=== PATIENT | female | born 1970 | race Caucasian/White ===

== ENCOUNTER 2023-04-06 06:18 | Observation (INO) ==
--- NOTE | 2023-03-15 12:39 | PAT Medication Instructions ---
Medication Instructions Date of Service March 15, 2023 Home Medications albuterol sulfate 90 mcg/actuation aerosol inhaler 1 inh inhalation QID PRN loratadine 10 mg tablet (Claritin) 10 mg PO QAM montelukast 10 mg tablet (Singulair) 10 mg PO HS omeprazole magnesium 20 mg tablet,delayed release (Prilosec OTC) 20 mg PO DAILY PRN venlafaxine 37.5 mg tablet 37.5 mg PO QPM Continue as directed omeprazole magnesium 20 mg tablet,delayed release (Prilosec OTC) 20 mg PO DAILY PRN DO NOT take the morning of surgery loratadine 10 mg tablet (Claritin) 10 mg PO QAM Take morning of surgery With a small sip of water, OTHERWISE NOTHING TO EAT OR DRINK AFTER MIDNIGHT: albuterol sulfate 90 mcg/actuation aerosol inhaler 1 inh inhalation QID PRN(use if needed; please bring with you to hospital day of surgery if possible) Take evening before surgery albuterol sulfate 90 mcg/actuation aerosol inhaler 1 inh inhalation QID PRN(if needed) montelukast 10 mg tablet (Singulair) 10 mg PO HS venlafaxine 37.5 mg tablet 37.5 mg PO QPM Other Notes If you have any questions please call us at [phone] or [phone] or [phone] or [phone]
--- NOTE | 2023-03-23 12:41 | Anesthesiology Consultation ---
Date of Service March 23, 2023 Assessment & Plan (1) Encounter for pre-operative examination: Infectious disease screening: Per assessment on 03/23/23: No known infectious disease contacts or current infectious disease symptoms. No noted Covid positive test result in past 90 days. Chart Review Chart Review: Acceptable Risk for Surgery and Patient seen in Pre Admission Testing Teaching & Discussion Pre-Anesthesia Teaching/Discussion Notes: Instructed NPO after midnight before surgery,except medications with 15 cc of water. Medication instructions provided according to the PAT guidelines. History Surgery Operation Date: 04/06/23 07:45 Proposed Procedures p C5-C7 Anterior Cervical Discectomy and Fusion, Spinal Cord Monitoring - Gregorio Breaux DO Height/Weight Height: 5 ft 5 in Weight: 84.3 kg Allergies Allergy/AdvReac Type Severity Reaction Status Date / Time No Known Allergies Allergy Verified 03/14/23 15:33 Medications Home Medications Medication Instructions Recorded Confirmed Last Taken albuterol sulfate 90 mcg/actuation 1 inh inhalation QID PRN sob 03/14/23 03/14/23 Unknown aerosol inhaler loratadine 10 mg tablet (Claritin) 10 mg PO QAM 03/14/23 03/14/23 Unknown montelukast 10 mg tablet 10 mg PO HS 03/14/23 03/14/23 Unknown (Singulair) omeprazole magnesium 20 mg 20 mg PO DAILY PRN gerd 03/14/23 03/14/23 Unknown tablet,delayed release (Prilosec OTC) venlafaxine 37.5 mg tablet 37.5 mg PO QPM 03/14/23 03/14/23 Unknown Past Medical History Medical History Osteoarthritis GERD (gastroesophageal reflux disease) History of migraine Exercise-induced asthma HLD (hyperlipidemia) Exercise / Class Metabolic Activity II 4-5 Yardwork/Stairs/Walk up hill (one FS (no CP, no SOB)) Past Surgical History Surgical History History of postoperative nausea History of endometrial ablation History of D&C D&E History of History of cholecystectomy History of esophagogastroduodenoscopy (EGD) History of colonoscopy History of hysterectomy Past Anesthesia History No Hx of Anesthesia Complications and No Family Hx of Anesthesia Complications History of PONV No Hx of Motion Sickness and History of PONV (post-op nausea x single episode) STOP BANG Total 2 Social History Smoking Status: Former smoker Do You Dip or Chew Tobacco: No Smoking End Date: Quit years ago Hx Alcohol Use: Yes alcohol intake frequency: a few times a month Hx Substance Use: No substance use type: does not use Review of Systems Patient denies chest pain, shortness of breath, dyspnea on exertion, fever, chills, cough, wheezing, palpitations. Physical Exam Vital Signs VITALS BP 126/81 P 85 TEMP 98.3 SP02 99%RA RESP 16 PHYSICAL Mildly decreased cervical extension range of motion. Full TMJ range of motion. TMD 3 finger breaths Mallampati Score 1 Dentition: intact, + crowns Lungs: clear throughout to auscultation Cardiac: regular rate and rhythm, no murmurs noted Spine: normal Carotid arteries: negative bruit Extremities: no LE edema Lab Results Anesthesia Preop Results Results Anesthesia Widget: WBC 6.05 K/ul (4.8-10.8) 03/23/23 Hgb 13.8 g/dl (12.0-16.0) 03/23/23 Hct 42.1 % (37.0-47.0) 03/23/23 Plt 273 K/uL (130-400) 03/23/23 Na 138 mmol/L (136-145) 03/23/23 K 4.1 mmol/L (3.5-5.1) 03/23/23 Cl 104 mmol/L (98-107) 03/23/23 CO2 27 mmol/L (21-32) 03/23/23 BUN 12 mg/dl (6-23) 03/23/23 Creat 0.71 mg/dl (0.6-1.2) 03/23/23 Glucose Level 84 mg/dl (70-99(Fasting)) 03/23/23 PT 11.8 Seconds (9.0-12.0) 03/23/23 PTT 27.1 Seconds (21.0-31.0) 03/23/23 INR 1.1 (0.9-1.1) 03/23/23 Urine Color Yellow 03/23/23 Urine Appearance Clear (Clear) 03/23/23 Urine pH 7.0 (4.5-7.5) 03/23/23 Urine Specific [place] 1.008 (1.000-1.030) 03/23/23 Urine Protein Negative (Negative) 03/23/23 Urine Glucose (UA) Negative (Negative) 03/23/23 Urine Ketones Negative (Negative) 03/23/23 Urine Blood Negative (Negative) 03/23/23 Urine Nitrite Negative (Negative) 03/23/23 Urine Bilirubin Negative (Negative) 03/23/23 Urine Urobilinogen Negative (Negative) 03/23/23 Urine Leukocyte Esterase Negative (Negative) 03/23/23 Blood Type A Positive 03/23/23 Antibody Screen NEGATIVE 03/23/23 Testing Electrocardiogram Date: 02/06/23 SR at 77bpm. PRWP. NS Septal T wave abnormality. "EKG normal per Dr. Cerda" Chest X-Ray Date: 03/23/23 FINDINGS: The lungs are clear. Cardiac silhouette is normal in size. No pleural effusions. No pneumothorax. Prior cholecystectomy. IMPRESSION: No acute process.
[~2023-04-06 06:18] MED LIST: ACETAMINOPHEN 500 MG TAB PO SCH; CeleBREX 200 MG CAP PO SCH; GABAPENTIN 600 MG DOSE PO SCH; LR 15ML/HR IV SCH; LR 60ML/HR IV SCH; ceFAZolin 2000MG 2,000 MG/15 ML SYR IV SCH
[2023-04-06] MEDS ORDERED: LIDOCAINE 2% 2 ML VIAL/AMP(20MG/ML) INFIL ONE ×2 (07:05)
[2023-04-06] MEDS ORDERED: fentaNYL citrate PF 100 MCG/2 ML VIAL ONE ×2 (07:05→08:21)
[2023-04-06] MEDS ORDERED: ONDANSETRON INJ 2 MG/ML 2 ML VIAL ONE (07:05)
[2023-04-06] MEDS ORDERED: MIDAZOLAM HCL 1 MG/ML 2ML VIAL ONE (07:05)
[2023-04-06] MEDS ORDERED: PROPOFOL IV EMULSION 10 MG/ML 20 ML VIAL IV ONE (07:05)
[2023-04-06] MEDS ORDERED: DEXAMETHASONE SOD INJ 4 MG/ML VIAL ONE (07:05)
[2023-04-06] MEDS ORDERED: ROCURONIUM BROMIDE 10 MG/ML 5 ML VIAL IV ONE ×7 (07:05→08:54)
[2023-04-06] MEDS ORDERED: ceFAZolin 330 MG/ML 1 GM VIAL ONE (07:06)
[2023-04-06] MEDS ORDERED: ONDANSETRON INJ 2 MG/ML 2 ML VIAL IV PRN ×2 (07:14→10:49)
[2023-04-06] MEDS ORDERED: ePHEDrine sulfate 50 MG/ML AMP IV PRN (07:14)
[2023-04-06] MEDS ORDERED: ATROPINE SULFATE 0.1 MG/ML 10ML SYR IV PRN (07:14)
--- NOTE | 2023-04-06 07:40 | History & Physical Bridge Note ---
Date of Service April 06, 2023 History & Physical Bridge Note I have examined the patient, reviewed the History & Physical and in the interval since the performance of the History & Physical I have noted the following changes of clinical significance: no changes noted
--- NOTE | 2023-04-06 07:43 | History & Physical Report ---
Date of Service April 06, 2023 Assessment & Plan (1) Cervical stenosis of spinal canal: Plan: C5 C7 anterior cervical discectomy and fusion History of Present Illness Chief Complaint: Neck and arm pain Primary Care Provider: Jonas Mejia M.D. Patient is a 53-year-old female with chronic persistent neck and arm pain after failing course of nonoperative care she is here for surgical invention. Allergies Allergy/AdvReac Type Severity Reaction Status Date / Time No Known Allergies Allergy Verified 04/06/23 06:31 Home Medications Medication Instructions Recorded Confirmed Type albuterol sulfate 90 mcg/actuation 1 inh inhalation QID PRN sob 03/14/23 04/06/23 History aerosol inhaler loratadine 10 mg tablet (Claritin) 10 mg PO QAM 03/14/23 04/06/23 History montelukast 10 mg tablet 10 mg PO HS 03/14/23 04/06/23 History (Singulair) omeprazole magnesium 20 mg 20 mg PO DAILY PRN gerd 03/14/23 04/06/23 History tablet,delayed release (Prilosec OTC) venlafaxine 37.5 mg tablet 37.5 mg PO QPM 03/14/23 04/06/23 History Past Med/Surg History Medical History Osteoarthritis GERD (gastroesophageal reflux disease) History of migraine Exercise-induced asthma HLD (hyperlipidemia) Surgical History History of postoperative nausea History of endometrial ablation History of D&C D&E History of History of cholecystectomy History of esophagogastroduodenoscopy (EGD) History of colonoscopy History of hysterectomy Social History Smoking Status: Former smoker Smoking End Date: Quit years ago; Second Hand Exposure: No; Do You Dip or Chew Tobacco: No; Tobacco Cessation Education Requested by Patient: No Hx Alcohol Use: Yes Hx Substance Use: No Preferred Language: Italian Communication Ability: Effective Senior Network Engineer Required: No Beliefs That Will Affect Care: None Current Living Situation: Alone Feels Safe at Home: Yes Safety Concerns: Feels Safe At This Time Assistive Devices: None Physical Exam Physical Exam: Patient is alert and oriented Heart regular rhythm Lungs clear Results & Data Results & Data Vital Signs (Past 12 Hours) Vital Signs Temp Pulse Resp BP Pulse Ox O2 Del Method 04/06/23 06:32 36.4 C L 87 18 153/83 H 98 Room Air
[2023-04-06] MEDS ORDERED: FLOSEAL HEMOSTATIC MATRIX 10ML TOP ONE (08:35)
[2023-04-06] MEDS ORDERED: SUGAMMADEX SODIUM 200 MG/2 ML VIAL IV ONE (09:18)
--- NOTE | 2023-04-06 09:24 | Operative Report ---
Post Operative Report Pre & Post Diagnosis Operation Date: 04/06/23 07:45 Pre-Op Diagnosis: Cervical spinal stenosis with radiculopathy Post-Op Diagnosis: Same I identified the patient and participated in the time-out.: Yes Procedure Operation Date: 04/06/23 07:45 Actual Procedures #1 anterior cervical discectomy with bilateral foraminotomies C5-C6 C6-C7. #2 anterior cervical arthrodesis C5-C6 C6-C7. #3 placement of Spira 7 mm cage at C5-C6 and 8 mm cage at C6-C7 both filled with I factor. #4 application of K2 M plate and screws from C5 to c 7. Surgeon Gregorio Breaux, DO Inspector Government Property Elvis Sheridan Estimated Blood Loss 10 Findings Consistent with Post-Op Diagnosis Specimens None Indications This is a 53-year-old female who presents above-mentioned diagnosis of failed course of nonoperative care she is here for surgical invention. Description of Procedure Patient was met with identified informed consent obtained. Patient was then taken to the operative suite underwent patient placed in a supine position on the Toribio table with a head Li commercial credit head. All bony promises well- padded eyes inspected to ensure no external precipice monitor at this point the anterior cervical spine was prepped and draped no sterile fashion. With the assistance of fluoroscopy notify the C6 vertebral body and a transverse incision was placed along the right anterior aspect of the cervical spine overlying this region. Blunt dissection with the assistance of bipolar electrocautery was then performed down to and exposing the anterior cervical spine from C5-C7. Self- retaining retractors placed. Informed complete discectomy of C5-C6 out to the uncovertebral notch bilaterally. [place] distraction pins utilized to assist in visualization. Removed all posterior annular fibers longitudinal ligament bilateral foraminotomies performed. Endplates were to subcortical bleeding bone and a 7 mm Spira cage filled with I factor tapped in position. Then proceeded to C6-C7. Again complete discectomy was performed up to the uncovertebral joints bilaterally. [place] distracting pins again utilized. Removed all posterior annular fibers longitudinal ligament bilateral foraminotomies performed. Endplates burred to subcortical bleeding bone and an 8 mm Spira cage with I factor tapped in position. Distracting apparatus was removed and the K2 M plate and screws applied with the assistance of fluoroscopy. Incision was then copiously irrigated explored to ensure no damage to surrounding structures or remaining bleeding. 10 round STEFANY drain inserted. The incision was then closed with 2-0 Vicryl in the fascia and 4 Monocryl for fascial closure. Steri- Strips sterile dressings placed. Patient awakened taken to PACU stable condition. Please note spinal cord monitoring was utilized at the procedure no changes noted. Lastly Elvis Sheridan was present at the entire surgery involved the patient positioning complex portion of the surgery and final skin closure. I attest to the content of the Intraoperative Record and any orders documented therein. Any exceptions are noted below.
[2023-04-06] MEDS: HYDROmorphone INJ 2 MG/ML SYR/VIAL IV PRN ×4 (09:47→10:14)
--- NOTE | 2023-04-06 10:06 | Fluoroscopy Report ---
FL cervical 2-3V CLINICAL HISTORY: C5-C7 ACDF COMPARISON STUDY: None. FLUOROSCOPY TIME: 10 seconds FLUOROSCOPY IMAGES: 3 Ka,r: 1 mGy FINDINGS: Anterior cervical discectomy and fusion from C5 through C7. The hardware appears intact. IMPRESSION: Fluoroscopic assistance as above. ACT 112: Negative or not required by law. Electronically signed by: Tray Oliver M.D. 04/06/2023 10:05 AM
[2023-04-06] MEDS ORDERED: LORazepam 0.5 MG in SYRINGE 0.25 ML IV PRN (10:49)
[2023-04-06] MEDS ORDERED: SOD PHOSPHATE/SOD BIPHOSPHATE ENEMA 132 ML BTL PR PRN (10:49)
[2023-04-06] MEDS ORDERED: NALOXONE HCL 0.4 MG/1 ML VIAL/CARP IV PRN (10:49)
[2023-04-06] MEDS ORDERED: PROMETHAZINE HCL 12.5 MG in SODIUM CHLORIDE 0.9% 50 ML IV PRN (10:49)
[2023-04-06] MEDS ORDERED: ALUMINUM/MAGNESIUM SUSP 30 ML UDC PO PRN (10:49)
[2023-04-06] MEDS ORDERED: HYDROmorphone INJ 0.5 MG/0.5 ML SYR IV PRN (10:49)
[2023-04-06] MEDS ORDERED: ACETAMINOPHEN 500 MG TAB PO PRN (10:49)
[2023-04-06] MEDS ORDERED: RACEPINEPHRINE 2.25% NEBU SOLN 0.5 ML VIAL INH PRN (10:49)
[2023-04-06] MEDS ORDERED: ONDANSETRON 4 MG OD TAB PO PRN (10:49)
[2023-04-06] MEDS ORDERED: ACETAMINOPHEN 1,000 MG/100 ML VIAL IV PRN (10:49)
[2023-04-06] MEDS ORDERED: MAGNESIUM HYDROXIDE SUSP 30 ML UDC PO PRN (10:49)
[2023-04-06] MEDS ORDERED: FAMOTIDINE 20 MG TAB PO PRN (10:49)
[2023-04-06] MEDS ORDERED: diphenhydrAMINE Capsule 25 MG CAP PO PRN (10:49)
[2023-04-06] MEDS ORDERED: traMADol HCL 50 MG TABLET PO PRN (10:49)
[2023-04-06] MEDS ORDERED: LORazepam 0.5 MG TAB PO PRN (10:49)
[2023-04-06] MEDS ORDERED: DO NOT ADMINISTER PNEUMOCOCCAL VACCINE PRN (10:49)
[2023-04-06] MEDS ORDERED: bisacodyL 10 MG SUPP PR PRN (10:49)
[2023-04-06] MEDS ORDERED: DO NOT ADMINISTER FLU VACCINE PRN (10:49)
[2023-04-06] MEDS ORDERED: ALBUTEROL HFA 8 GM INHALER INH PRN (10:49)
[2023-04-06] MEDS ORDERED: METOCLOPRAMIDE HCL INJ 5 MG/ML 2 ML VIAL IV PRN (10:49)
[2023-04-06] MEDS ORDERED: hydrOXYzine HCl 25 MG TAB PO PRN (10:49)
[2023-04-06] MEDS ORDERED: dexAMETHasone 8 MG in SYRINGE 0 ML IV PRN (10:49)
[2023-04-06] MEDS: LACTATED RINGER'S 1,000 ML IV SCH ×2 (11:04→20:08)
[2023-04-06] MEDS ORDERED: PANTOprazole 40 MG TAB PO PRN (11:15)
[2023-04-06] MEDS: HYDROmorphone INJ 1 MG/ML SYRINGE IV PRN ×3 (14:08→21:59)
--- NOTE | 2023-04-06 15:17 | Anesthesiology Progress Note ---
Date of Service April 06, 2023 Anesthesia Post Procedure Vital Signs Vital Signs: Temp Pulse Pulse Resp BP Pulse Ox Pulse Ox 04/06/23 14:00 105 H 18 162/92 H 96 04/06/23 13:00 96 H 18 150/78 H 97 04/06/23 12:00 97 H 18 150/74 H 97 04/06/23 11:30 97 H 18 145/75 H 94 04/06/23 11:17 97 H 13 90 04/06/23 11:00 94 04/06/23 11:00 36.8 C 102 H 20 144/77 H 94 04/06/23 10:40 36.7 C 100 H 10 L 154/76 H 97 04/06/23 10:30 36.7 C 103 H 22 142/83 H 98 04/06/23 10:20 36.7 C 95 H 12 143/76 H 96 04/06/23 10:10 100 H 16 133/77 96 04/06/23 10:00 99 H 12 138/75 100 04/06/23 09:50 95 H 9 L 153/70 H 100 04/06/23 09:41 36.0 C L 91 H 10 L 150/83 H 99 04/06/23 06:32 36.4 C L 87 18 153/83 H 98 O2 Del Method O2 Del Method O2 Flow Rate FiO2 04/06/23 14:00 Room Air 04/06/23 13:00 Nasal Cannula 1 04/06/23 12:00 Nasal Cannula 2 04/06/23 11:30 Nasal Cannula 2 04/06/23 11:17 Room Air 21 04/06/23 11:00 Room Air 04/06/23 11:00 Room Air 04/06/23 10:40 Room Air 04/06/23 10:30 Room Air 04/06/23 10:20 Room Air 04/06/23 10:10 Room Air 04/06/23 10:00 Oxymask 2 04/06/23 09:50 Oxymask 3 04/06/23 09:41 Oxymask 5 04/06/23 06:32 Room Air Pain Intensity Neck: Pain Intensity: 2 Transfer of Care Handoff Completed per policy Notes Mental Status: alert / awake / arousable Patient Amnestic to Procedure: Yes Nausea / Vomiting: adequately controlled Pain: adequately controlled Airway Patency, RR, SpO2: stable & adequate BP & HR: stable & adequate Hydration State: stable & adequate Anesthetic Complications: no major complications apparent and Pt Satisfied with anesthetic care
[2023-04-06] MEDS: oxyCODONE HCL IR 5 MG TAB (IMMEDIATE RELEASE) PO PRN (16:09)
[2023-04-06] MEDS: ceFAZolin 2000MG 2,000 MG/15 ML SYR IV SCH (16:09)
[2023-04-06] MEDS ORDERED: VENLAFAXINE HCL 37.5 MG TAB PO SCH (21:00)
[2023-04-06] MEDS ORDERED: MONTELUKAST SODIUM 10 MG TABLET PO SCH (21:00)
[2023-04-06] MEDS ORDERED: DOCUSATE SODIUM/SENNA 50/8.6MG TAB PO SCH (21:00)
[2023-04-07] MEDS: ceFAZolin 2000MG 2,000 MG/15 ML SYR IV SCH (00:32)
[2023-04-07] MEDS: HYDROmorphone INJ 1 MG/ML SYRINGE IV PRN (02:21)
[2023-04-07] MEDS: POLYETHYLENE (MIRALAX) 17 GM PACK PO SCH ×2 (05:43→11:08)
[2023-04-07] MEDS: oxyCODONE HCL IR 5 MG TAB (IMMEDIATE RELEASE) PO PRN (07:37)
--- NOTE | 2023-04-07 08:33 | Discharge Summary ---
Date of Service April 07, 2023 Admission HPI Per Admitting Provider Patient is a 53-year-old female with chronic persistent neck and arm pain after failing course of nonoperative care she is here for surgical invention. Principal Diagnosis Cervical spinal stenosis with radiculopathy Discharge Data Allergies Allergy/AdvReac Type Severity Reaction Status Date / Time No Known Allergies Allergy Verified 04/06/23 06:31 Procedures Performed Operation Date: 04/06/23 07:45 Actual Procedures p C5-C7 Anterior Cervical Discectomy and Fusion, Spinal Cord Monitoring(Not Applicable) - Gregorio Breaux DO Ordered Studies 04/06/23 07:45 [place] cervical 2-3V Routine Hospital Course (1) Cervical stenosis of spinal canal: Patient underwent anterior cervical discectomy and fusion tolerated this well was taken to orthopedic floor postoperatively postoperatively she is swallowing well no hoarseness. Arm symptoms markedly improved. Excellent strength testing. STEAFNY drain decreasing appropriately. Subsequent discharge home. Discharge orders and instructions found in chart for further review. Total Time Total Time Spent Total Time Spent (In Minutes): 20 minutes Discharge Plan Discharge Items Patient Disposition: Home - Self-Care Reason For Visit: Spinal Stenosis, Cervical Region Discharge Diagnosis: Cervical spinal stenosis with radiculopathy Activity: As commented below Non-emergency contact: Primary Care Provider Call non-emergency contact if: you have any medication questions Follow-up/Referrals: Jonas Mejia M.D. [Primary Care Provider] - Diet: Regular Addtl Attending Provider Instructions: ACTIVITY RECOMMENDATIONS: SELF CARE INSTRUCTIONS AFTER CERVICAL FUSIONS 1. No smoking. Smoking drastically decreases the chance of a solid fusion. 2. No bending, lifting more than 5 pounds, or twisting (roll like a log when turning in bed). 3. You may shower 3 days after surgery. Thoroughly dry wound. Do not soak in the tub. 4. Cervical collar: Must be worn at all times including sleeping. You may remove the brace only to bath, eat and if you are sitting in a recliner. 5. Please walk as much as you can for exercise. Gradually increase the distance that you walk as your endurance increases. SPECIAL CARE INSTRUCTIONS: VERY IMPORTANT TO READ AND REVIEW A. Do not take any anti-inflammatory medications (i.e. Indocin, Advil, Aspirin, Naprosyn, Aleve, Motrin, etc.) as these may inhibit the chance of a solid fusion. Tylenol is okay to take. B. Your surgical incision has been closed with a cosmetic suture under the skin that will dissolve in about 6 weeks. In 14 days, you can use a pair of clean scissors and cut the suture that is left outside of the skin at the ends of your incision. C. Complications are uncommon, but please contact us if you have any signs or symptoms of: 1. wound infection (fever higher than 102.5 degrees F, redness, separation of wound, drainage, or increasing pain from the incision) 2. blood clots in legs (pain, swelling, redness and warmth in legs) 3. urinary tract infection (fever higher than 102.5 degrees, burning upon urination or increased frequency of urination) 4. nerve problems (inability to walk on your toes or heels, numbness, loss of bowel or bladder control) 5. any other symptoms that concern you. D. Please call the office at if you have any concerns or questi ons about your operation or recovery. MANAGING PAIN AFTER SPINAL SURGERY 1. Narcotic medication is intended for short-term use and will be provided for surgical pain. Surgical pain usually lasts for a period of 4-6 weeks. Narcotic medication includes Percocet, Vicodin, Darvocet, Tylenol #3 or Lortab. 2. Longer-term pain is more appropriately treated with non-narcotic medication such as Tylenol ES. 3. Muscle spasm is not appropriately treated with narcotics. Muscle relaxers such as Soma, Flexeril or Skelaxin can be used along with Tylenol ES. 4. Remember that we all live with some "aches and pains". This is not unusual or uncommon after an injury or as we get older. 5. We will provide appropriate medication within the normal guidelines of their prescribed use. We will also be very cautious and aware of potential abuse and extended duration of patients' medication needs. 6. Please allow 2-3 days to process refills. Prescriptions will not be mailed but must be picked up at the office. FOLLOW UP VISIT: Keep your scheduled follow-up appointment. Any questions, please call the office at . Pending Studies at Discharge: No Stand-Alone Forms: My [employer], Smoking Cessation Medications and MA Order Prescriptions: New tramadol 50 mg tablet 50 mg PO Q6H PRN (Reason: pain, moderate) Qty: 20 0RF oxycodone 5 mg tablet 5 mg PO Q6H PRN (Reason: pain) Qty: 20 0RF Continued venlafaxine 37.5 mg Tablet 37.5 mg PO QPM montelukast [Singulair] 10 mg Tablet 10 mg PO HS albuterol sulfate 90 mcg/actuation Hfa Aerosol Inhaler 1 inh INHALATION QID PRN (Reason: sob) loratadine [Claritin] 10 mg Tablet 10 mg PO QAM omeprazole magnesium [Prilosec OTC] 20 mg Tablet,Delayed Release (Dr/Ec) 20 mg PO DAILY PRN (Reason: gerd) Discharge Orders: Discharge Order (Routine); Ordered 04/07/23 Ordered By: Gregorio Breaux Admission Data Admit Date/Time: 04/06/23 09:28 Attending Provider: Gregorio Breaux Admit Provider: Gregorio Breaux Primary Care Provider: Jonas Mejia
[2023-04-07] MEDS ORDERED: LORATADINE 10 MG TAB PO SCH (09:00)
[2023-04-07] MEDS ORDERED: dexAMETHasone 6 MG in SYRINGE 0 ML IV SCH (09:00)
== END 2023-04-07 12:37 | disposition home or self-care (01) ==
LOC: ASU 06:18 → 3E 06:18